=== PATIENT | male | born 1970 | race African-American/Black ===

== ENCOUNTER 2017-02-27 15:26 | Observation (INO) ==
[2017-02-27] MEDS ORDERED: ONDANSETRON 4 MG/2 ML VIAL IV PRN (16:39)
[2017-02-27] MEDS ORDERED: ZALEPLON 5 MG CAPSULE PO PRN (16:39)
[2017-02-27 17:00] LABS: Basophils # 0.1 10*3/uL (0.0-0.2); Basophils % 0.5 % (0.0-0.8); Eosinophils # 0.4 10*3/uL (0.0-0.87); Eosinophils % 3.9 % (0.00-10.9); Hematocrit 37.6 VOL% (42.0-52.0); Hemoglobin 13.4 GM/DL (14.0-18.0); Immature Granulocytes % 0.3 %; Immature Granulocytes Absolute 0.03 #; Lymphocytes % 21.5 % (21.2-54.2); Mean Corpuscular HGB Conc 35.6 GM/DL (32-36); Mean Corpuscular Hemoglobin 30 PG (27-34); Mean Corpuscular Volume 83.9 FL (87-102); Mean Platelet Volume 10.4 FL (9.6-12.0); Monocytes # 0.9 10*3/uL (0.11-0.8); Monocytes % 9.5 % (1.7-12.7); Neutrophils # 6.1 10*3/uL (1.4-7.4); Neutrophils % 64.3 % (38.7-73.9); Platelet Count 304 T/CUMM (130-400); Red Blood Count 4.48 MC/CUMM (3.8-5.5); Red Cell Distribution Width 12.9 % (9.3-17.3); White Blood Count 9.4 T/CUMM (4-12)
[2017-02-27] MEDS ORDERED: PANTOPRAZOLE 40 MG TABLET PO SCH (17:00)
[2017-02-27 17:22] LABS: Troponin I Only < 0.015 NG/ML (0.00-0.045)
[2017-02-27 17:24] LABS: Osmolality,Calculated 284.8 MOS/KG (273-304); Potassium 3.8 MMOL/L (3.5-5.1)
[2017-02-27] MEDS: ALUMINUM/MAGNES/SIMETH MAX STR 30 ML UDCUP PO SCH ×2 (18:03→22:14)
--- NOTE | 2017-02-27 18:34 | Hospitalist History & Physical ---
Assessment and Plan - Time spent with patient Time spent with patient: Greater than 30 minutes (1) Chest pain Status: Acute Assessment and plan: patient was a direct admit per Dr Slater from office wiht chest pain that radiates to left shoulder that has been coming and going since Sunday. Seen in the ER on Sunday for CP at [facility] in [place], was given nitro wiht relief. Following up wiht Dr slater today with the same compalaint of nagging recurrent chest pain and some SOB. Discussed with Dr Tavarez and will admit patient to . Order labs, stress test for a.m.; chest xray and EKG for further evaluation Current Visit: Yes History of Present Illness Chief complaint: Chest pain History of present illness: Mr. Wang is a 46 year old black male well nourshied and pleasant was a direct admit per Dr Slater for left sided chest pain and shoulder pain. He had a similar episode on Sunday [facility] gave him nitro and the pain was relieved and he was dischargged home but the pain returned on Sunday and has not been able to get relief "feels uncomfortable and at times like something is stuck in my chest, a pressure". He reports feeling dizzy when he stands up. Denies cough, fever or chills. Patient has a history of Hypertension. Denies smoking. Drinks Beer 2-3 times a week. Family history: sister HTn and grandfather: prostate Cancer Home Medications Medication Instructions Recorded Confirmed Type Bisoprol/Hydrochlorothiazide 1 tablet PO DAILY 02/27/17 02/27/17 History [Bisoprolol-Hctz 10-6.25 mg Tab] Allergies Allergy/AdvReac Type Severity Reaction Status Date / Time No Known Drug Allergies Allergy Verified 02/27/17 16:37 Medical,Surgical,& Family Hx - Medical History Cardio: History of: Hypertension - Surgical History Cardiac Surgeries: Patient Denies: Cardiac Catheterization Thoracic Surgeries: Patient denies;: Lobectomy - Family History Family History: Reports;: Family Cancer (grandfather), Family Heart Disease ( grandmother), Family Hypertension - Social History Smoking Status: Never smoker Frequency of Alcohol Use: Occasionally (2-3 times per week ( Beer)) Type of Drug Use: None Marital Status: Lives With:: Spouse Functional capacity: independent ambulation Review of systems: ROS systems complete and positive and negatives ini HPI. Exam - Constitutional Vitals: Period Temp Pulse Resp BP Sys/Cook Pulse Ox Last 24 Hr 62 18 124/74 97 General appearance: normal weight, no acute distress - Head Head exam: Present: normal inspection - Eye Eye exam: Present: EOMI Pupils: Present: YVONNE - Neck Neck exam: Present: normal inspection - Respiratory Respiratory exam: Present: clear to auscultation bilaterally - Cardiovascular Cardiovascular exam: Present: regular rate and rhythm - GI/Abdominal GI/Abdominal exam: Present: normal bowel sounds - Extremities Exam Extremities exam: Present: normal inspection, full ROM. Absent: edema - Neurological Exam Neurological exam: Present: alert, oriented X3, normal gait, CN II-XII intact - Psychiatric Psychiatric exam: Present: normal affect - Skin Skin exam: Present: normal color, warm, dry Results - Labs CBC & BMP: 02/27/17 16:54 02/27/17 16:54 Lab Results: I have reviewed the past 24 hour labs
--- NOTE | 2017-02-27 19:38 | XRay Report ---
XR chest 2V Date: 02/27/2017 6:37 PM History: Chest pain Comparison: None Technique: PA and lateral chest Findings: The heart is minimally enlarged with left ventricular prominence and uncoiling of the aorta. Calcified granulomata/nodes. Minimal relative elevation of the right hemidiaphragm. Degenerative changes are noted. Impression: Minimal cardiomegaly with left ventricular prominence and uncoiling of the aorta which can be seen with hypertensive cardiovascular disease. No acute cardiopulmonary pathology identified. Old healed granulomatous disease with minimal relative elevation of the right hemidiaphragm. PROCEDURE INTERPRETED AT [facility] Final Report Signed by: Dr. Ngoc Martines
[2017-02-27] MEDS ORDERED: ENOXAPARIN 40 MG/0.4 ML SYRINGE SUBCUT SCH (21:00)
[2017-02-27] MEDS: ACETAMINOPHEN 325 MG TABLET PO PRN (22:14)
[2017-02-27] MEDS: SODIUM CHLORIDE 0.9% 1,000 ML IV SCH ×2 (22:14→23:50)
[2017-02-27] MEDS: PANTOPRAZOLE 40 MG TABLET PO SCH (22:15)
[2017-02-28] MEDS: ALUMINUM/MAGNES/SIMETH MAX STR 30 ML UDCUP PO SCH ×2 (04:05→05:16)
[2017-02-28 04:39] LABS: Blood Urea Nitrogen 13 MG/DL (7-18); Calcium 8.8 MG/DL (8.5-10.1); Glucose 106 MG/DL (74-106); Magnesium 2.5 MG/DL (1.8-2.4); Potassium 3.6 MMOL/L (3.5-5.1); Sodium 143 MMOL/L (136-145); Troponin I Only < 0.015 NG/ML (0.00-0.045)
--- NOTE | 2017-02-28 06:47 | EKG Report ---
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
--- NOTE | 2017-02-28 08:18 | Cardiology Consult Note ---
<Terese Colon - Last Filed: 02/28/17 08:07> Assessment and Plan - Time spent with patient Time spent with patient: Greater than 30 minutes (1) Chest pain Status: Acute Assessment and plan: SEE PLAN OF CARE LISTED BELOW. Current Visit: Yes (2) Hypertension Status: Chronic Assessment and plan: SEE PLAN OF CARE LISTED BELOW. 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 Jaylan Slater Mr. Wang is a 46 year old male without known history of coronary artery disease, not routinely followed by local cardiology. Patient has cardiac risk factors significant for hypertension and obesity. Patient reports that he has no significant family history of coronary artery disease. He is a lifetime non- smoker. Patient reports that he has never been seen by shirt sewer and has never undergone cardiac workup. Denies cardiac stress testing or heart catheterization in the past. Patient was in his usual state of health until approximately 1 week ago whenever he began experiencing chest discomfort. On Father's Day, he woke up experiencing midsternal chest pain that he describes as a sharp pain. Nonradiating. He reports that this continued throughout the day and he presented to [facility] that evening. Subsequently, he received nitroglycerin which he reports relieved his pain for a couple of hours. He was then discharged home with as needed nitro and was instructed to follow up with his PCP. He saw Dr. Jaylan Slater on Sunday. He was told at that appointment, they would call him shortly with an appointment with local cardiology. However, he reports he never received a phone call. He then followed up with Dr. Jaylan Slater yesterday and reported that he continued to have chest discomfort. At that time, he was directly admitted to [facility] for further evaluation. He reports that over the last week he has been taking sublingual nitroglycerin as needed for his chest pain. He reports that this relieved his chest pain for a couple of hours. However, it eventually returns. He rates his pain about a 4 on a scale of 1-10. Associated with shortness of breath and lightheadedness. Denies nausea, vomiting and diaphoresis. No exertional component noted. Unable to identify any specific alleviating or aggravating factors. Cardiology has been consulted to further evaluate patient' s chest discomfort. Of note, he does report that he is a very active person and approximately 8 months ago he was able to walk up to 8 miles in 1 day without experiencing chest pain, heaviness and tightness. He has not exercised in the last 8 months due to lack of time as he is building a house. Over the last week, he reports feeling very fatigued and reports that he has been tiring out quickly. On Sunday, he reports feeling very short of breath and fatigued while putting out a. He tells me that this is very unusual for him as he is usually a very active person. He denies experiencing chest pain, heaviness or tightness during that time. He denies fever, chills, cough, abdominal pain, nausea, vomiting, orthopnea, PND and lower extremity swelling. Patient was seen and examined on the telemetry unit. He is currently without chest pain, heaviness and tightness. Currently not requiring oxygen. Chest x- ray does not reveal any acute cardiopulmonary processes. Troponin has been negative 2. EKG is unremarkable. After discussing with Dr. Moon, we will keep patient n.p.o. and do cardiac stress test later this morning. We will also order echocardiogram in order to assess patient's LV function. Further plan and addendum to follow per Dr. Moon. ASSESSMENT/PLAN: 1. CHEST PAIN - He is currently without chest pain, heaviness and tightness. Troponin has been negative 2. Responds to nitroglycerin. EKG is unremarkable. After discussing with Dr. Moon, we will keep patient n.p.o. and do cardiac stress test later this morning. We will also order echocardiogram in order to assess patient's LV function. 2. HYPERTENSION - Currently under well control. Will continue current plan of care with beta-jose angel/hydrochlorothiazide. Will adjust as needed throughout his hospitalization. Further plan and addendum to follow per Dr. Moon CC: Bala Tavarez MD - Home Medications and Allergies Home Medications: Home Medications Medication Instructions Recorded Confirmed Type Bisoprol/Hydrochlorothiazide 1 tablet PO DAILY 02/27/17 02/27/17 History [Bisoprolol-Hctz 10-6.25 mg Tab] Allergies/Adverse Reactions: Allergies Allergy/AdvReac Type Severity Reaction Status Date / Time No Known Drug Allergies Allergy Verified 02/27/17 16:37 - Constitutional Constitutional: Present: fatigue. Absent: chills, fever(s), frequent falls, lethargy, malaise, weakness, weight gain, weight loss - Cardiovascular Cardiovascular: Present: as per HPI, chest pain at rest, dyspnea, dyspnea on exertion, lightheadedness. Absent: claudication, diaphoresis, edema, radiating jaw, neck or arm pain, orthopnea, palpitations, PND - Respiratory Respiratory: Present: dyspnea, dyspnea on exertion. Absent: cough, hemoptysis, wheezing, snoring, pain on inspiration, change in phlegm color - Gastrointestinal Gastrointestinal: Absent: abdominal pain, change in bowel habits, coffee ground emesis, constipation, diarrhea, dyspepsia, heartburn, hematemesis, hematochezia , loose stools, melena, nausea, vomiting - Neurological Neurological: Present: headache(s). Absent: abnormal gait, abnormal speech, behavioral changes, dizziness, numbness, paresthesias, syncope - Hematologic/Lymphatic Hematologic/Lymphatic: Absent: easy bleeding, easy bruising, lymphadenopathy Medical,Surgical,& Family Hx - Medical History Cardio: History of: Hypertension - Surgical History Cardiac Surgeries: Patient Denies: Cardiac Catheterization Thoracic Surgeries: Patient denies;: Lobectomy - Family History Family History: Reports;: Family Cancer (grandfather), Family Hypertension - Social History Smoking Status: Never smoker Frequency of Alcohol Use: Occasionally (2-3 times per week ( Beer)) Type of Drug Use: None Marital Status: Lives With:: Spouse Functional capacity: independent ambulation Physical Examination Vital Signs Pulse Resp BP Pulse Ox 62 18 124/74 97 02/27/17 16:40 02/27/17 16:40 02/27/17 16:40 02/27/17 16:40 Other: General: Appears well with no apparent distress. Pleasant and cooperative. Appears comfortable. HEENT: PERRL, normocephalic, atraumatic. Mucous membranes moist. No jaundice noted. Conjunctiva moist and clear, sclerae anicteric Neck: No JVD/HJR, no thyromegaly or lymphadenopathy noted. No carotid bruit appreciated Cardiac: Regular rate and rhythm. No murmur rub or gallop. Lungs: Clear to auscultation without accessory muscle use to assist the respiratory pattern. Not requiring oxygen. Abdomen: Soft, bowel sounds normoactive. Nontender and nondistended. No abdominal bruit or thrill noted. No masses noted. Extremities: No clubbing, cyanosis noted. No edema noted. Upper extremity pulses 2+. Lower extremity pulses 2+. Capillary refill less than 3 seconds. Skin: No unusual lesions or rashes. No skin breakdown appreciated. Neuro: Awake, alert and oriented 3. Moves all extremities well without hemiparesis or paralysis. No essential tremor is appreciated. Result/EKG - Labs CBC & BMP: 02/27/17 16:54 02/28/17 02:56 Lab Results: I have reviewed the past 24 hour labs Labs: Laboratory Results - last 24 hr 02/27/17 02/27/17 02/27/17 16:53 16:54 16:54 WBC 9.4 RBC 4.48 Hgb 13.4 L Hct 37.6 L MCV 83.9 L MCH 30 MCHC 35.6 RDW 12.9 Plt Count 304 MPV 10.4 Neut % (Auto) 64.3 Lymph % (Auto) 21.5 [place] % (Auto) 9.5 Eos % (Auto) 3.9 Baso % (Auto) 0.5 Neut # (Auto) 6.1 Lymph # (Auto) 2.0 [place] # (Auto) 0.9 H Eos # (Auto) 0.4 Baso # (Auto) 0.1 Immature Gran % 0.3 Nucleated RBC % 0.0 Immature Gran # 0.03 Nucleated RBCs # 0.00 Sodium 144 Potassium 3.8 Chloride 106 Carbon Dioxide 29 Anion Gap 12.8 BUN 15 Creatinine 1.20 GFR Calculation 112 BUN/Creatinine Ratio 12.00 Glucose 65 L Calculated Osmolality 284.8 Calcium 9.0 Magnesium Total Creatine Kinase 513 H Troponin I < 0.015 02/28/17 02:56 WBC RBC Hgb Hct MCV MCH MCHC RDW Plt Count MPV Neut % (Auto) Lymph % (Auto) [place] % (Auto) Eos % (Auto) Baso % (Auto) Neut # (Auto) Lymph # (Auto) [place] # (Auto) Eos # (Auto) Baso # (Auto) Immature Gran % Nucleated RBC % Immature Gran # Nucleated RBCs # Sodium 143 Potassium 3.6 Chloride 108 H Carbon Dioxide 28 Anion Gap 10.6 BUN 13 Creatinine 1.10 GFR Calculation 124 BUN/Creatinine Ratio 11.00 Glucose 106 Calculated Osmolality 284.0 Calcium 8.8 Magnesium 2.5 H Total Creatine Kinase 399 H D Troponin I < 0.015 - EKG EKG results: interpreted by me, sinus rhythm EKG shows: bradycardia <Danny Moon - Last Filed: 02/28/17 14:09> History of Present Illness - Consult Narrative History of present illness: Cardiology addendum Patient examined chart reviewed and I discussed with nurse Terese Colon RN. Atypical chest pain. Negative CPK and troponin and negative EKG. Lifetime non-smoker. No diabetes. No family history CAD. Alcohol abuse. He consumes at least one case of beer per week, sometimes more. Regular rhythm no murmur or gallop. Lungs clear. Abdomen benign. Femoral pulses 2+ without bruit. No edema. Plan Echo Doppler Exercise cardiac stress test Discussed with patient and his Felisa CC: Bala Tavarez MD Physical Examination Vital Signs Pulse Resp BP Pulse Ox 62 18 124/74 97 02/27/17 16:40 02/27/17 16:40 02/27/17 16:40 02/27/17 16:40 Result/EKG - Labs CBC & BMP: 02/27/17 16:54 02/28/17 02:56 Labs: Laboratory Results - last 24 hr 02/27/17 02/27/17 02/27/17 16:53 16:54 16:54 WBC 9.4 RBC 4.48 Hgb 13.4 L Hct 37.6 L MCV 83.9 L MCH 30 MCHC 35.6 RDW 12.9 Plt Count 304 MPV 10.4 Neut % (Auto) 64.3 Lymph % (Auto) 21.5 [place] % (Auto) 9.5 Eos % (Auto) 3.9 Baso % (Auto) 0.5 Neut # (Auto) 6.1 Lymph # (Auto) 2.0 [place] # (Auto) 0.9 H Eos # (Auto) 0.4 Baso # (Auto) 0.1 Immature Gran % 0.3 Nucleated RBC % 0.0 Immature Gran # 0.03 Nucleated RBCs # 0.00 Sodium 144 Potassium 3.8 Chloride 106 Carbon Dioxide 29 Anion Gap 12.8 BUN 15 Creatinine 1.20 GFR Calculation 112 BUN/Creatinine Ratio 12.00 Glucose 65 L Calculated Osmolality 284.8 Calcium 9.0 Magnesium Total Creatine Kinase 513 H Troponin I < 0.015 Triglycerides Cholesterol LDL Cholesterol VLDL Cholesterol HDL Cholesterol Heart Disease Risk Ratio 02/28/17 02/28/17 02:56 02:56 WBC RBC Hgb Hct MCV MCH MCHC RDW Plt Count MPV Neut % (Auto) Lymph % (Auto) [place] % (Auto) Eos % (Auto) Baso % (Auto) Neut # (Auto) Lymph # (Auto) [place] # (Auto) Eos # (Auto) Baso # (Auto) Immature Gran % Nucleated RBC % Immature Gran # Nucleated RBCs # Sodium 143 Potassium 3.6 Chloride 108 H Carbon Dioxide 28 Anion Gap 10.6 BUN 13 Creatinine 1.10 GFR Calculation 124 BUN/Creatinine Ratio 11.00 Glucose 106 Calculated Osmolality 284.0 Calcium 8.8 Magnesium 2.5 H Total Creatine Kinase 399 H D Troponin I < 0.015 Triglycerides 216 H Cholesterol 226 H LDL Cholesterol 144.0 VLDL Cholesterol 43.2 HDL Cholesterol 36 L Heart Disease Risk Ratio 6.28
[2017-02-28] MEDS ORDERED: BISOPROLOL/HCTZ 10-6.25 MG TABLET PO SCH (09:00)
[2017-02-28 09:08] LABS: Risk Ratio 6.28; VLDL CHOLESTEROL 43.2 MG/DL
[2017-02-28] MEDS: PANTOPRAZOLE 40 MG TABLET PO SCH (12:08)
[2017-02-28] MEDS: ACETAMINOPHEN 325 MG TABLET PO PRN (12:10)
[2017-02-28] MEDS: SODIUM CHLORIDE 0.9% 1,000 ML IV SCH (12:11)
--- NOTE | 2017-02-28 15:27 | ECHO Report ---
Ray Wang Exam Date: 02/28/2017 09:21 Referring Physician: Technologist: osmany Camacho ARDMS, RVT Age: 46 Ht (in): 72 Wt (lb): 234 Gender: M Exam Location: [facility] Echo Indications: Essential (primary) hypertension, Chest pain, unspecified BP: 124 / 67 HR: 53 Rhythm: Sinus Technical Quality: IMPRESSIONS Left ventricular ejection fraction is estimated at 60 %. The right ventricle is normal in size and function. The right atrium is normal in size. The left atrium is mildly enlarged. Morphologically normal mitral valve. Trace mitral valve regurgitation. Trileaflet aortic valve. No aortic valve regurgitation. Mild tricuspid valve regurgitation. PAP40 mmHG. Morphologically normal pulmonic valve. Normal pericardium without effusion. Normal ascending aorta dimension. MEASUREMENTS (Male / Female) Normal Values 2D ECHO LV Diastolic Diameter PLAX 4.8 cm 4.2 - 5.9 / 3.9 - 5.3 cm LV Systolic Diameter PLAX 3.3 cm LV Fractional Shortening PLAX 30.9 % IVS Diastolic Thickness 1.0 cm 0.6 - 1.0 / 0.6 - 0.9 cm LVPW Diastolic Thickness 1.1 cm 0.6 - 1.0 / 0.6 - 0.9 cm RV Internal Dim ED PLAX 2.6 cm Aortic Root Diameter 3.9 cm LA Systolic Diameter LX 4.2 cm 3.0 - 4.0 / 2.7 - 3.8 cm DOPPLER TR Peak Velocity 286.0 cm/s TR Peak Gradient 32.7 mmHg FINDINGS Left Ventricle Normal left ventricular cavity size. Mild left ventricular hypertrophy. Left ventricular ejection fraction is estimated at 60 %. Right Ventricle The right ventricle is normal in size and function. Right Atrium The right atrium is normal in size. Left Atrium The left atrium is mildly enlarged. Mitral Valve Morphologically normal mitral valve. Trace mitral valve regurgitation. Aortic Valve Trileaflet aortic valve. No aortic valve regurgitation. Tricuspid Valve Morphologically normal tricuspid valve. Mild tricuspid valve regurgitation. PAP40 mmHG. Pulmonic Valve Morphologically normal pulmonic valve. Pericardium Normal pericardium without effusion. Aorta Normal ascending aorta dimension. Ric Red (Electronically Signed) Final Date: 28 February 2017 15:26
[2017-02-28 16:06] VITALS: BP 112/64
--- NOTE | 2017-02-28 16:55 | Nuclear Medicine Report ---
DATE: 02/28/2017 PROCEDURE: EXERCISE CARDIOLITE GATED SPECT PERFUSION STUDY. INITIAL IMPRESSION: 1. A 46-YEAR-OLD MAN WITH ATYPICAL CHEST PAIN. 2. HYPERTENSION. 3. ABNORMAL EKG. FINAL IMPRESSION: NORMAL EXERCISE CARDIOLITE GATED SPECT PERFUSION STUDY. I. DESCRIPTION OF PROCEDURE: The patient received 10.0 mCi of Technetium-99m Cardiolite IV and rest imaging was obtained in the routine manner 20 minutes later. The patient then walked for 11 minutes and 20 seconds on the standard Bala protocol and achieved a peak heart rate of 158, which is 89% of his predicted maximal heart rate. At peak exercise, 30.0 mCi of Technetium-99m Cardiolite IV was in jected and stress imaging was obtained in the routine manner 20 minutes later. Serial electrocardiog lima were performed. The initial blood pressure was 146/82, and it was 160/80 immediately post exerc ise. II: RESULTS: The patient had no chest pain or arrhythmias and the test was terminated due to shortn ess of breath and fatigue. The resting EKG demonstrates sinus bradycardia with late transition and S T-T-wave changes. With exercise, no diagnostic EKG changes occurred. No arrhythmias. Tomographic imaging demonstrates homogeneous uptake of radioisotope in all segments. There is no jasvir dence for ischemia or scar. Gated SPECT imaging demonstrates normal wall motion and thickening in al l segments. The calculated ejection fraction is 65%. III: FINAL IMPRESSION: 1. CLINICALLY AND ELECTROCARDIOGRAPHICALLY NEGATIVE. 2. GOOD WORK CAPACITY. THE PATIENT COMPLETED 12.1 METS. 3. SCINTIGRAPHICALLY NORMAL PERFUSION STUDY. IV. DISPOSITION: The patient should be reassured regarding the lack of any evidence for significant coronary artery disease at this time. He had no chest pain or diagnostic EKG changes at a high work load and tomographic imaging is normal. In addition, ventricular function is well preserved with ej ection fraction of 65%. This is a low-risk scan. Continued medical therapy and risk factor modifica tion recommended. Procedure performed and interpreted at [facility] Department of Radiology. CC: Jaylan Slater MD
--- NOTE | 2017-02-28 17:41 | Discharge Summary ---
Hospital Course - Hospital Course Hospital Course: The patient was admitted from the office of Jaylan Slater. The patient was having some chest discomfort and esophageal symptoms. Myocardial infarction was ruled out by EKG and enzymes. The patient had cardiology evaluation with Dr. la and a stress echocardiogram with nuclear medicine study was performed. The patient had no evidence of coronary ischemia on his scan. The patient's chest pain has improved with antiacid therapy. The patient is now ready for discharge to home and Dr. Slater will arrange outpatient GI evaluation. On the date of discharge, chest clear and abdomen soft. - Time spent with patient Time with patient DS: Less than 30 minutes Diagnosis - Discharge Diagnosis (1) GERD with esophagitis Status: Chronic (2) Hypertension Status: Chronic Discharge Plan - Discharge Data Disposition: Disch To Home/Self Care Condition at Discharge: Stable Discharge Diet: heart healthy Activity: resume usual activities as tolerated - Discharge Medications New Pantoprazole Tab [Protonix Tab] 40 mg PO BID #90 tablet Continue Bisoprol/Hydrochlorothiazide [Bisoprolol-Hctz 10-6.25 mg Tab] 1 tablet PO DAILY - Follow Up or Referral Follow Up: Jaylan Slater MD [Primary Care Provider] - 1 Week (to arrange GI eval ) - Forms/Instructions Exam - Constitutional Vitals: Period Temp Pulse Resp BP Sys/Cook Pulse Ox Last 24 Hr 97 F-98 F 53-69 16-20 112-127/61-71 94-99 Discharge Results Procedures and tests throughout hospitalization: Pending Orders 03/01/17 04:00 BMP w/ Mg [Basic Metabolic Panel w/Mg] IN AM CBC [Comp Blood Count Auto Diff] IN AM 03/02/17 04:00 BMP w/ Mg [Basic Metabolic Panel w/Mg] IN AM CBC [Comp Blood Count Auto Diff] IN AM Labs on day of discharge: Labs from last 24 hours 02/28/17 02/28/17 02:56 02:56 Sodium 143 Potassium 3.6 Chloride 108 H Carbon Dioxide 28 Anion Gap 10.6 BUN 13 Creatinine 1.10 GFR Calculation 124 BUN/Creatinine Ratio 11.00 Glucose 106 Calculated Osmolality 284.0 Calcium 8.8 Magnesium 2.5 H Total Creatine Kinase 399 H D Troponin I < 0.015 Triglycerides 216 H Cholesterol 226 H LDL Cholesterol 144.0 VLDL Cholesterol 43.2 HDL Cholesterol 36 L Heart Disease Risk Ratio 6.28 DS: Provider Date of admission: 02/27/17 16:20 Primary care physician: Jaylan Slater MD Attending physician on admission: Bala Tavarez MD Consults: 02/27/17 16:39 Consult to Physician [CONS] Routine Comment: chest pain Consulting Provider: Danny Moon Person Notified: Yolie Date Notified: 02/28/17 Time Notified: 08:25 Discharging clinician: Bala Tavarez MD
== END 2017-02-28 18:25 | disposition home or self-care (01) ==
LOC: N.TELES
PROVIDERS: ADMIT Internal Medicine; ATTEND Internal Medicine